=== PATIENT | female | born 1985 ===

== ENCOUNTER 2016-07-03 23:36 | Emergency (ER) | payer BC, OTHER ==
[2016-07-04 00:22] VITALS: BMI 27.3
--- NOTE | 2016-07-04 01:17 | OBHP ---
Datetime: 07/04/2016 01:11 IP Adm Impression: Term, intrauterine ; No Active Labor; Intact Membranes IP Admit Plan: Observation/Evaluation; Discharge home Admit Comment, IP Provider: The patient is a 30-year-old 2 para 1 EDC 518 estimated gestatio nal age 38 weeks patient presents to labor and delivery complaining of pelvic discomfort times severa l hours duration. Patient denies any uterine contractions vaginal bleeding or leakage of fluid. Patie nt states care was significant for a short cervix patient states received steroids. She aniyah es any other complications during this Past medical history none Past surgical history none No known drug allergies Medications vitamins Social history denies alcohol tobacco use Social history one previous vaginal delivery no complications Review of systems patient denies headache chest pain shortness of breath palpitations blurry visio n headache nausea vomiting diarrhea constipation dysuria in a cold intolerance easy bruisability musc uloskeletal or neurological complaints Vital signs stable afebrile Physical exam she notes And she at 38 weeks abdominal discomfort External monitor Observation Discharge home with labor precautions, kick counts patient to follow-up with PMD in 1 week Review of records from Dr. Jonas Pelvic Type - PN: Adequate Extremities - PN: Normal Abdomen - PN: Normal Back - PN: Normal Breast - PN: Not Done Lungs - PN: Normal Heart - PN: Normal Thyroid - PN: Normal Neurologic - PN: Normal HEENT - PN: Normal General - PN: Normal Weight - Estimated: 7 Presentation-Admit: Vertex FHR - Baseline A Provider: 145 Gestation - Est Wks by US: 38.0 Pool Provider: Negative EGA AdmitDate IP: 38.2 Vital Signs Provider: Reviewed IP Chief Complaint: evaluation NICHD Variability Prov Fetus A: Moderate 6-25bpm NICHD Accel Fetus A IP Provider: 10X10 FHR Category Provider Fetus A: Category I NICHD Decel Fetus A IP Provider: None Dilatation, Provider: 1 Effacement, Provider: 75 Station, Provider: -2 Genitourinary Exam: Normal DTRs - PN: Normal
== END 2016-07-04 01:16 | disposition home or self-care (01) ==
LOC: H.EROB2 23:36
DX: O47.1 False labor at or after 37 completed weeks of gestation (principal); O26.873 Cervical shortening, third trimester; Z3A.38 38 weeks gestation of pregnancy

== ENCOUNTER 2016-07-18 16:11 | Inpatient (IN) | payer BC, OTHER ==
[2016-07-18] MEDS: Lactated Ringer's 1,000 ML IV SCH ×2 (16:45→17:05)
--- NOTE | 2016-07-18 16:57 | OBADHP ---
Datetime: 07/18/2016 16:35 Admit Comment, IP Provider: IUP 40w c/o ctx pain starting 2pm. no srom. no vb. +fm. PMH: denies PSH: denies NKA POBGYNH: x 1 No STD A: IUP at 40+ w active phase of labor Painful CTX PLAN: admit to L_D IVF Labs Discussion about labor, pain management, delivery and Her questions answered observe labor progress Dr Park notified Pelvic Type - PN: Adequate Extremities - PN: Normal Abdomen - PN: Normal Back - PN: Normal Breast - PN: Not Done Lungs - PN: Normal Heart - PN: Normal Thyroid - PN: Normal Neurologic - PN: Normal HEENT - PN: Normal General - PN: Normal Presentation-Admit: Vertex IP Fetus A Comments: 2-3m FHR - Baseline A Provider: 120 Membranes, Provider: Intact Contraction Comments Provider: + Comments, ACOG Physical Exam: ROS: Geneeral no weakness; no fatigue HEENT: No CRAIG; no visual dist Resp: No SOB; no Cough CV: NO CP; no palpitations GI: No N/V/D : No F/U/D MS: NO joint pain Pool Provider: Negative IP Hx Assessment: The History has been Reviewed and is Current IP Chief Complaint: Uterine contractions NICHD Variability Prov Fetus A: Moderate 6-25bpm NICHD Accel Fetus A IP Provider: 15X15 FHR Category Provider Fetus A: Category II NICHD Decel Fetus A IP Provider: Prolonged Dilatation, Provider: 7 Effacement, Provider: 100 Station, Provider: -2 Genitourinary Exam: Normal DTRs - PN: Normal EGA AdmitDate IP: 40.2 IP Adm Impression: Term, intrauterine ; Active labor IP Admit Plan: Admit to unit; Initiate labor protocol Datetime: 07/04/2016 01:11 Weight - Estimated: 7 Gestation - Est Wks by US: 38.0 Vital Signs Provider: Reviewed Datetime: 05/07/2016 20:33 IP Chief Complaint Other: Short cervical length
[2016-07-18 16:58] VITALS: BP 130/86; PULSE 86; RESP 18; TEMP 98; O2SAT 100
[2016-07-18 17:18] LABS: HEMATOCRIT 35.2 % (34.0-47.0); MEAN CELL VOLUME 91.1 fl (81.0-99.0); MEAN CORPUSCULAR HEMOGLOBIN 30.2 pg (27.0-31.0); MEAN CORPUSCULAR HGB CONC 33.2 g/dL (33.0-37.0); RED CELL DISTRIBUTION WIDTH 13.6 % (11.5-14.5); WHITE BLOOD COUNT 14.7 K/uL (4.8-10.8)
[2016-07-18] MEDS ORDERED: Lidocaine 2% PF (10 ml) Amp ONE (17:23)
[2016-07-18] MEDS ORDERED: Fentanyl/Bupivacaine HCl 250 ML EPI ONE (17:24)
--- NOTE | 2016-07-18 17:52 | OBHP ---
Datetime: 07/18/2016 17:49 Presentation-Admit: Vertex FHR - Baseline A Provider: 125 Amniotic Fluid Color, Provider: Clear Membranes, Provider: Ruptured Pool Provider: Negative NICHD Variability Prov Fetus A: Moderate 6-25bpm NICHD Accel Fetus A IP Provider: 15X15 FHR Category Provider Fetus A: Category I NICHD Decel Fetus A IP Provider: None Dilatation, Provider: 7-8 Effacement, Provider: 100 Station, Provider: 0 Datetime: 07/18/2016 16:35 Admit Comment, IP Provider: IUP 40w c/o ctx pain starting 2pm. no srom. no vb. +fm. PMH: denies PSH: denies NKA POBGYNH: x 1 No STD A: IUP at 40+ w active phase of labor Painful CTX PLAN: admit to L_D IVF Labs Discussion about labor, pain management, delivery and Her questions answered observe labor progress Dr Park notified chart rev'd ; care Dr Yvonne SENA
--- NOTE | 2016-07-18 17:52 | OBPN ---
Datetime: 07/18/2016 17:49 IP Progress Impression: Normal progression of labor; Reassuring heart rate IP Informed Consent Obtain: Vaginal Delivery; Risks, Benefits and Alternatives Discussed IP Procedures: Artificial ROM IP Progress Plan: Continue present management; Augmentation Pool Provider: Negative Membranes, Provider: Ruptured Amniotic Fluid Color, Provider: Clear FHR - Baseline A Provider: 125 Presentation-Admit: Vertex IP Progress Note Comment: SHe rec'd epidural and feels much better. SVE no change AROM clear fluid NICHD Accel Fetus A IP Provider: 15X15 FHR Category Provider Fetus A: Category I NICHD Variability Prov Fetus A: Moderate 6-25bpm Dilatation, Provider: 7-8 Effacement, Provider: 100 Station, Provider: 0 NICHD Decel Fetus A IP Provider: None Datetime: 07/18/2016 16:35 Contraction Comments Provider: + IP Fetus A Comments: 2-3m Datetime: 07/04/2016 01:11 Gestation - Est Wks by US: 38.0 Weight - Estimated: 7 Vital Signs Provider: Reviewed
[2016-07-18] MEDS ORDERED: Oxycodone/Acetaminophen 5/325 mg Tab PO PRN ×4 (18:19→20:36)
[2016-07-18] MEDS ORDERED: Benzocaine/Menthol SPRAY TOP PRN (18:19)
[2016-07-18] MEDS: Benzocaine/Menthol SPRAY TOP PRN (21:23)
[2016-07-19 07:45] LABS: HEMATOCRIT 31.3 % (34.0-47.0); MEAN CORPUSCULAR HEMOGLOBIN 30.3 pg (27.0-31.0); MEAN CORPUSCULAR HGB CONC 33.3 g/dL (33.0-37.0); RED CELL DISTRIBUTION WIDTH 13.4 % (11.5-14.5)
[2016-07-19 08:32] LABS: WHITE BLOOD COUNT 16.9 K/uL (4.8-10.8)
[2016-07-19] MEDS: Benzocaine/Menthol SPRAY TOP PRN (17:29)
--- NOTE | 2016-07-19 19:15 | OBPPN ---
Datetime: 07/19/2016 19:11 PP Pain Prov: Within normal limits PP Nausea Prov: Denies PP Flatus Prov: Yes PP BM Prov: Yes PP Breasts Prov: Normal PP Heart Prov: Normal PP Lungs Prov: Normal PP Abdomen/Uterus Prov: Normal PP Lochia Prov: Normal PP Vulva/Perineum Prov: Normal PP CVA Tenderness Prov: Normal PP Extremities Prov: Normal PP C/S Incision Prov: Normal PP Progress Prov: Normal PP Comments Phys Exam Prov: Uterus firm below umbilicus No deep calf tenderness bilaterally PP Impression Prov: Normal progression PP Plan Prov: Continue present management PP Progress Note Prov: day #1, recovering well CBC Out of bed, ambulate Regular diet Pain control consultation IP PP Procedures: None Vital Signs Provider PP: Reviewed; Within Normal Limits
--- NOTE | 2016-07-20 12:08 | OBDCSUM ---
Datetime: 07/20/2016 12:00 Discharged to, Provider: Home Follow up at, Provider: OB Disch Instr Activity: Normal activity Disch Instr Diet: Regular Discharge Instructions, Provider: Routine instructions given Discharge Diagnosis, Provider: Term Delivered Discharge Time: 07/20/2016 12:00 Follow up in weeks, Provider: 6 wks Disch Referrals: None Contraception discussed, Prov: Yes Discharge Comment, Provider: Return to hospital if increased bleeding, pain, temp
--- NOTE | 2016-07-20 12:08 | OBPPN ---
Datetime: 07/20/2016 11:58 PP Pain Prov: Within normal limits PP Nausea Prov: Denies PP Flatus Prov: Yes PP Breasts Prov: Normal PP Heart Prov: Normal PP Lungs Prov: Normal PP Abdomen/Uterus Prov: Normal PP Lochia Prov: Normal PP Vulva/Perineum Prov: Normal PP CVA Tenderness Prov: Normal PP Extremities Prov: Normal PP Comments Phys Exam Prov: Fundus firm under umbilicus PP Impression Prov: Normal progression PP Plan Prov: Continue present management PP Progress Note Prov: Patient denies CP, no SOB, no N/V, tolerating PO diet, ambulating/voiding wel l, mild lochia, abdominal pain tolerable with meds, A/P PPD #2 1. DIscharge patient home 2. DIscharge instructions reviewed IP PP Procedures: None Vital Signs Provider PP: Reviewed; Within Normal Limits
[2016-07-21] MEDS ORDERED: Prenatal Multivit/Folic Acid/Iron Tab PO SCH (09:00)
== END 2016-07-20 16:25 | disposition home or self-care (01) | DRG 775 ==
LOC: H.EROB2 16:11 → H.L&D 16:39 → H.OB/GYN 21:02
PROVIDERS: ADMIT Obstetrics & Gynecology; ATTEND Obstetrics & Gynecology
PROC: 10E0XZZ Delivery of Products of Conception, External Approach (ICD-10-PCS; principal; 2016-07-18)
PROC: 0UQJXZZ Repair Clitoris, External Approach (ICD-10-PCS; 2016-07-18)
PROC: 4A1HXCZ Monitoring of Products of Conception, Cardiac Rate, External Approach (ICD-10-PCS; 2016-07-18)
DX: O48.0 Post-term pregnancy (principal); O69.81X0 Labor and delivery complicated by cord around neck, without compression, not applicable or unspecified; Z37.0 Single live birth; O71.89 Other specified obstetric trauma; Z3A.40 40 weeks gestation of pregnancy